=== PATIENT | female | born 1960 | race Caucasian/White ===

== ENCOUNTER → 2017-08-10 | Outpatient (CLI) | payer MEDICARE ==
[~2017-08-10] MED LIST: AMLO10TA2 PO; ASPI-691 PO; ATEN25TA PO; CALC-112 PO; CARI250T PO; CYAN500T22 PO; CYCL7.5T25 PO; DIAZ5TAB4 PO; DILT120C64 PO; GABA600T2 PO; LORA10CA PO; MULT-208 PO; OMEP-110 PO; OXYC-306 PO; SIMV20TA3 PO
== END | disposition home or self-care (01) ==
LOC: WOUND 09:23
PROVIDERS: ATTEND Podiatrist Foot & Ankle Surgery
DX: T25.012A Burn of unspecified degree of left ankle, initial encounter (principal); S91.002A Unspecified open wound, left ankle, initial encounter; E78.5 Hyperlipidemia, unspecified; I10 Essential (primary) hypertension; T31.0 Burns involving less than 10% of body surface; X08.8XXA Exposure to other specified smoke, fire and flames, initial encounter; Y93.89 Activity, other specified; Y92.89 Other specified places as the place of occurrence of the external cause; Y99.8 Other external cause status; X58.XXXA Exposure to other specified factors, initial encounter
CPT/HCPCS: 97597; G0463; WOU0463

== ENCOUNTER → 2019-01-17 | Outpatient (CLI) | payer MEDICARE ==
[~2019-01-17] MED LIST changes: -AMLO10TA2 PO; +AMLO10TA8 PO; -GABA600T2 PO; +GABA600T7 PO
== END | disposition home or self-care (01) ==
LOC: CFH 08:00
PROVIDERS: ATTEND Nurse Practitioner Family
DX: I48.0 Paroxysmal atrial fibrillation (principal); I51.7 Cardiomegaly
CPT/HCPCS: 78452; 93017; A9502

== ENCOUNTER 2019-03-04 01:22 | Emergency (ER) | payer MEDICARE ==
[~2019-03-04] VITALS: Ht 167.6 cm; Wt 87.0 kg
[2019-03-04] MEDS ORDERED: ERGO500017 PO (01:46)
[2019-03-04] MEDS ORDERED: VOLTAREN (01:46)
[2019-03-04] MEDS ORDERED: METOPROL (01:46)
[2019-03-04] MEDS ORDERED: METF500T17 PO (01:46)
[2019-03-04] MEDS ORDERED: FLONASE (01:46)
[2019-03-04] MEDS ORDERED: OMEP-110 PO (01:46)
[2019-03-04] MEDS ORDERED: METO50TA82 PO (01:46)
[2019-03-04] MEDS ORDERED: GLIP5TAB10 PO (01:46)
[2019-03-04] MEDS ORDERED: ASPI-496 PO (01:46)
[2019-03-04] MEDS ORDERED: HYDROCHLOROTH12.5 MG PO (01:46)
[2019-03-04] MEDS ORDERED: LISI-170 PO (01:46)
[2019-03-04] MEDS ORDERED: ATOR40TA PO (01:46)
[2019-03-04] MEDS ORDERED: ASPIRIN 81 MG TABLET CHEW ONE (01:55)
[2019-03-04] MEDS ORDERED: SODIUM CHLORIDE FLUSH 10ML SYR IVF ONE (02:00)
[2019-03-04] MEDS ORDERED: MORPHINE SULFATE 4 MG/ML, 1ML IVPush PRN (02:00)
[2019-03-04] MEDS ORDERED: ASPIRIN 81 MG TABLET CHEW PO ONE (02:00)
[2019-03-04] MEDS ORDERED: NITROGLYCERIN SINGLE TAB 0.4 MG SL PRN (02:00)
[2019-03-04] MEDS ORDERED: ONDANSETRON 2MG/ML, 2ML IVPush ONE (02:00)
[2019-03-04 02:09] LABS: MEAN CORPUSCULAR HGB CONC 33.1 g/dL (32.4-35.8); MEAN CORPUSCULAR VOLUME 90.8 fL (80-100); MEAN PLATELET VOLUME 8.9 fL (7.4-10.4); PLATELET COUNT 321 x10^3/uL (130-400); RED BLOOD COUNT 4.72 x10^6/uL (3.82-5.3); RED CELL DISTRIBUTION WIDTH 14.6 % (9.6-15.2)
[2019-03-04 02:19] LABS: INTERNATIONAL NORMALIZED RATIO 0.98 (0.93-1.1); PROTHROMBIN TIME 10.3 Seconds (9.6-11.5)
[2019-03-04 02:21] LABS: ALANINE AMINOTRANSFERASE 55 U/L (12-78); ALBUMIN 3.9 g/dL (3.4-5.0); ANION GAP 12 mmol/L (5-15); CALCIUM 9.2 mg/dL (8.5-10.1); CHLORIDE 107 mmol/L (98-107); CREATININE 1.27 mg/dL (0.55-1.02)
[2019-03-04 02:25] LABS: ALKALINE PHOSPHATASE 108 U/L (45-117); BILIRUBIN,TOTAL 0.5 mg/dL (0.2-1.0); TOTAL PROTEIN 7.6 g/dL (6.4-8.2); TROPONIN I < 0.015 ng/mL (0.000-0.045)
[2019-03-04 02:30] LABS: MD YES
[2019-03-04 02:32] LABS: <PLATELET ESTIMATE> ADEQUATE; <PLT MORPHOLOGY> NORMAL PLT MORPH; <RBC MORPHOLOGY> NORMAL; EOS#(MANUAL) 0.48 x10^3/uL (0.0-0.4); EOS% (MANUAL) 3 % (1-7); LYMPH#(MANUAL) 4.48 x10^3/uL (1-3.4); LYMPHS% (MANUAL) 28 % (22-44); MONOS% (MANUAL) 10 % (2-9); SEG#(MANUAL) 9.44 x10^3/uL (1.8-6.8); SEGS% (MANUAL) 59 % (42-75)
[2019-03-04 03:09] VITALS: BP 129/73
== END 2019-03-04 03:11 | disposition home or self-care (01) ==
LOC: ED 01:51
DX: R07.89 Other chest pain (principal); I10 Essential (primary) hypertension; E11.9 Type 2 diabetes mellitus without complications; E78.5 Hyperlipidemia, unspecified; K21.9 Gastro-esophageal reflux disease without esophagitis; F17.200 Nicotine dependence, unspecified, uncomplicated
CPT/HCPCS: 36415; 71045; 80053; 83880; 84484; 85025; 85610; 85730; 93005; 99284; 99406

== ENCOUNTER 2019-03-19 09:36 | Day surgery (SDC) | payer MEDICARE ==
[2019-03-18 15:10] LABS: MEAN CORPUSCULAR HEMOGLOBIN 29.4 pg (27.0-34.8); MEAN CORPUSCULAR HGB CONC 32.5 g/dL (32.4-35.8); MEAN CORPUSCULAR VOLUME 90.6 fL (80-100); MEAN PLATELET VOLUME 8.8 fL (7.4-10.4); PLATELET COUNT 310 x10^3/uL (130-400); RED BLOOD COUNT 4.44 x10^6/uL (3.82-5.3); RED CELL DISTRIBUTION WIDTH 14.4 % (9.6-15.2)
[2019-03-18 15:19] LABS: ANION GAP 6 mmol/L (5-15); CALCIUM 9.1 mg/dL (8.5-10.1); CHLORIDE 109 mmol/L (98-107); CREATININE 1.16 mg/dL (0.55-1.02)
[2019-03-18 15:43] LABS: BASOPHILS # (AUTO) 0.08 x10^3/uL (0-0.1); BASOPHILS % (AUTO) 1 % (0-1); EOSINOPHILS # (AUTO) 0.34 x10^3/uL (0-0.4); EOSINOPHILS % (AUTO) 3 % (1-7); LYMPHOCYTES # (AUTO) 4.99 x10^3/uL (1-3.4); LYMPHOCYTES % (AUTO) 37 % (22-44); MD SCAN; MONOCYTES # (AUTO) 0.61 x10^3/uL (0.2-0.8); MONOCYTES % (AUTO) 5 % (2-9); NEUTROPHILS # (AUTO) 7.43 x10^3/uL (1.8-6.8); NEUTROPHILS % (AUTO) 55 % (42-75)
[~2019-03-19] VITALS: Ht 168.9 cm; Wt 85.0 kg
[~2019-03-19 09:36] MED LIST changes: +ASPI-496 PO; +ATOR40TA PO; +DICL100G19 TP; +DULO30CA2 PO; +ERGO500017 PO; +FLONASE; +FLUT9.9S NAS; +GLIP5TAB10 PO; +HYDROCHLOROTH12.5 MG PO; +LISI-170 PO; +METF500T17 PO; +METO50TA82 PO; +METOPROL; +OXYC5CAP2 PO; +VOLTAREN
[2019-03-19] MEDS ORDERED: TICAGRELOR 90 MG TABLET ONE (11:44)
[2019-03-19] MEDS ORDERED: FENTANYL PF 100 MCG/2ML ONE (11:44)
[2019-03-19] MEDS ORDERED: MIDAZOLAM 1 MG/ML, 5ML ONE (11:44)
[2019-03-19] MEDS ORDERED: NITROGLYCERIN 5 MG/ML, 10ML ONE (11:44)
[2019-03-19] MEDS ORDERED: VERAPAMIL 2.5 MG/ML, 2ML ONE (11:44)
[2019-03-19] MEDS ORDERED: BIVALIRUDIN 250 MG ONE (11:44)
[2019-03-19] MEDS ORDERED: LIDOCAINE 2%, 20ML ONE (11:45)
[2019-03-19] MEDS ORDERED: HEPARIN 1,000 UNITS/ML, 10ML ONE (11:45)
[2019-03-19] MEDS ORDERED: SODIUM CHLORIDE 0.9% 1,000 ML IV SCH (12:24)
[2019-03-19] MEDS ORDERED: ACETAMINOPHEN 325 MG TABLET PO PRN (12:30)
== END 2019-03-19 14:51 | disposition home or self-care (01) ==
LOC: CACL 09:36
PROVIDERS: ATTEND Internal Medicine Cardiovascular Disease
DX: I25.110 Atherosclerotic heart disease of native coronary artery with unstable angina pectoris (principal); E11.9 Type 2 diabetes mellitus without complications; I10 Essential (primary) hypertension; E78.2 Mixed hyperlipidemia; Z88.1 Allergy status to other antibiotic agents; Z88.8 Allergy status to other drugs, medicaments and biological substances; Z88.2 Allergy status to sulfonamides; Z87.891 Personal history of nicotine dependence
CPT/HCPCS: 36415; 80048; 85025; 93458; 99156; C1769; C1894; J1644; J2250; J3010; Q9967; J0583

== ENCOUNTER → 2020-04-22 | Outpatient (CLI) | payer MEDICARE ==
[~2020-04-22] MED LIST changes: +SIMV20TA19 PO; -SIMV20TA3 PO
== END | disposition home or self-care (01) ==
LOC: RAD 14:44
PROVIDERS: ATTEND Physician Assistant Surgical
DX: M43.22 Fusion of spine, cervical region (principal); M47.22 Other spondylosis with radiculopathy, cervical region
CPT/HCPCS: 72040

== ENCOUNTER 2020-07-02 08:11 | Outpatient (CLI) | payer MEDICARE ==
[2020-07-02] MEDS ORDERED: FENTANYL PF 100 MCG/2ML ONE (09:23)
[2020-07-02] MEDS ORDERED: MIDAZOLAM 1 MG/ML, 5ML ONE (09:23)
== END 2020-07-02 23:59 | disposition home or self-care (01) ==
LOC: RAD 08:11
PROVIDERS: ATTEND Neurological Surgery
DX: M50.21 Other cervical disc displacement, high cervical region (principal); M48.02 Spinal stenosis, cervical region; I10 Essential (primary) hypertension; M32.9 Systemic lupus erythematosus, unspecified; E11.9 Type 2 diabetes mellitus without complications; F17.200 Nicotine dependence, unspecified, uncomplicated; Z88.2 Allergy status to sulfonamides; Z88.5 Allergy status to narcotic agent; Z98.1 Arthrodesis status
CPT/HCPCS: 72141; 99156; 99157; J2250; J3010

== ENCOUNTER 2021-04-08 09:17 | Outpatient (CLI) | payer MEDICARE ==
[~2021-04-08 09:17] MED LIST changes: +AMLO-211 PO; -AMLO10TA8 PO; -OXYC-306 PO; +OXYC1TAB17 PO
[2021-04-08] MEDS ORDERED: FLUMAZENIL 0.1 MG/1 ML, 5ML ONE (10:58)
[2021-04-08] MEDS ORDERED: MIDAZOLAM 1 MG/ML, 5ML ONE ×2 (10:58)
[2021-04-08] MEDS ORDERED: FENTANYL PF 100 MCG/2ML ONE (10:58)
[2021-04-08] MEDS ORDERED: NALOXONE 1 MG/ML, 2ML ONE (10:58)
== END 2021-04-08 23:59 | disposition home or self-care (01) ==
LOC: RAD 09:17
PROVIDERS: ATTEND Internal Medicine Gastroenterology
DX: M54.9 Dorsalgia, unspecified (principal); K73.9 Chronic hepatitis, unspecified; R16.0 Hepatomegaly, not elsewhere classified; M79.661 Pain in right lower leg; M79.662 Pain in left lower leg; I10 Essential (primary) hypertension; Z88.2 Allergy status to sulfonamides; Z88.5 Allergy status to narcotic agent; Z90.49 Acquired absence of other specified parts of digestive tract; Z98.1 Arthrodesis status
CPT/HCPCS: 72148; 76700; 99156; 99157; J2250; J3010; J2310

== ENCOUNTER 2021-05-04 06:02 | Day surgery (SDC) | payer MEDICARE ==
[~2021-05-04] VITALS: Ht 168.9 cm; Wt 89.7 kg
[2021-05-04 06:55] VITALS: BP 141/88
[2021-05-04] MEDS ORDERED: SODIUM CHLORIDE 0.9% 1,000 ML IV SCH (07:00)
[2021-05-04 07:41] LABS: INTERNATIONAL NORMALIZED RATIO 0.96 (0.93-1.1); PROTHROMBIN TIME 10.3 Seconds (9.6-11.5)
[2021-05-04] MEDS ORDERED: FENTANYL PF 100 MCG/2ML ONE ×2 (08:08)
[2021-05-04] MEDS ORDERED: MIDAZOLAM 1 MG/ML, 5ML ONE (08:08)
[2021-05-04] MEDS ORDERED: FLUMAZENIL 0.1 MG/1 ML, 5ML ONE (08:08)
[2021-05-04] MEDS ORDERED: NALOXONE 1 MG/ML, 2ML ONE (08:08)
== END 2021-05-04 10:30 | disposition home or self-care (01) ==
LOC: RAD 06:02
PROVIDERS: ATTEND Internal Medicine Gastroenterology
DX: K73.9 Chronic hepatitis, unspecified (principal); K74.00 Hepatic fibrosis, unspecified; K75.81 Nonalcoholic steatohepatitis (NASH); I10 Essential (primary) hypertension; E11.9 Type 2 diabetes mellitus without complications; F17.210 Nicotine dependence, cigarettes, uncomplicated; Z88.2 Allergy status to sulfonamides; Z88.5 Allergy status to narcotic agent
CPT/HCPCS: 36415; 47000; 76942; 85610; 88307; 88313; 99156; 99157; J2250; J3010; J7030; J2310

== ENCOUNTER 2021-07-01 08:38 | Outpatient (CLI) | payer MEDICARE ==
[~2021-07-01 08:38] MED LIST changes: +OXYC1TAB16 PO; -OXYC1TAB17 PO
== END 2021-07-01 23:59 | disposition home or self-care (01) ==
LOC: CFH 08:38 → RAD 23:59
PROVIDERS: ATTEND Nurse Practitioner
DX: Z12.31 Encounter for screening mammogram for malignant neoplasm of breast (principal); Z12.2 Encounter for screening for malignant neoplasm of respiratory organs; M50.31 Other cervical disc degeneration, high cervical region; M54.5 Low back pain; Z87.891 Personal history of nicotine dependence
CPT/HCPCS: 71271; 72050; 72110; 77063; 77067